=== PATIENT | male | born 1975 | race Caucasian/White ===

== ENCOUNTER 2017-08-06 04:31 | Emergency (ER) | payer BC ==
[2017-08-06] MEDS ORDERED: Clindamycin CAP* 150 MG PO ONE (05:46)
[2017-08-06] MEDS ORDERED: oxyCODONE/Acetamin 5/325 MG* TAB PO ONE (05:46)
--- NOTE | 2017-08-06 06:38 | ED ---
Jovanni Levine Nikita, scribed for Juan F Sol on 08/06/17 at 0550 . Throat Pain/Nasal Congestion - HPI Summary HPI Summary: This patient is a 41 year old M BIBA to ED with a chief complaint of L upper dental pain since 4 days ago. The CC is described as intermittent and aching. The patient rates the pain 10/10 in severity. Symptoms aggravated by nothing. Symptoms alleviated by nothing. Patient reports L facial swelling. Patient denies fever. Pt has put on ice as treatment. Pt is a resident at [facility]. - History of Current Complaint Chief Complaint: EDDentalPain Time Seen by Provider: 08/06/17 05:26 Hx Obtained From: Patient Onset/Duration: Sudden Onset, Lasting Days, Still Present Severity: Severe Associated Signs And Symptoms: Negative: Negative - Patient reports L facial swelling. Patient denies fever. - Allergies/Home Medications Allergies/Adverse Reactions: Allergies Allergy/AdvReac Type Severity Reaction Status Date / Time Codeine Allergy Hives Verified 08/06/17 04:45 PMH/Surg Hx/FS Hx/Imm Hx Endocrine/Hematology History: Denies: Hx Diabetes Cardiovascular History: Denies: Hx Coronary Artery Disease, Hx Hypertension - Immunization History Date of Influenza Vaccine: 01/2017 Infectious Disease History: No Infectious Disease History: Denies: Traveled Outside the [place] in Last 30 Days - Family History Known Family History: Negative: Cardiac Disease, Hypertension, Diabetes - Social History Alcohol Use: None Substance Use Type: Reports: None Smoking Status (MU): Current Every Day Smoker Review of Systems Negative: Fever Positive: Dental Pain - L upper Positive: Other - L facial swelling All Other Systems Reviewed And Are Negative: Yes Physical Exam Triage Information Reviewed: Yes Vital Signs On Initial Exam: Initial Vitals Temp Pulse Resp BP Pulse Ox 98.2 F 77 18 107/86 98 08/06/17 04:40 08/06/17 04:40 08/06/17 04:40 08/06/17 04:40 08/06/17 04:40 Vital Signs Reviewed: Yes Appearance: Positive: Well-Appearing, No Pain Distress Skin: Positive: Warm, Skin Color Reflects Adequate Perfusion, Dry Head/Face: Positive: Normal Head/Face Inspection Eyes: Positive: EOMI, SARAH ENT: Positive: Normal ENT inspection Dental: Positive: Other - tenderness over 7/8 tooth area Respiratory/Lung Sounds: Positive: Clear to Auscultation, Breath Sounds Present Cardiovascular: Positive: RRR, Pulses are Symmetrical in both Upper and Lower Extremities Abdomen Description: Positive: Nontender, Soft Bowel Sounds: Positive: Present Musculoskeletal: Positive: Normal, Strength/ROM Intact Neurological: Positive: Normal, Sensory/Motor Intact, Alert, Oriented to Person Place, Time Diagnostics - Vital Signs Vital Signs Temp Pulse Resp BP Pulse Ox 08/06/17 04:40 98.2 F 77 18 107/86 98 - Laboratory Lab Statement: Any lab studies that have been ordered have been reviewed, and results considered in the medical decision making process. EENT Course/Dx - Course Assessment/Plan: This patient is a 41 year old M BIBA to ED with a chief complaint of L upper dental pain since 4 days ago. Patient reports L facial swelling. Patient denies fever. In the ED course, pt was given cleocet and percocet. Pt will be discharged. - Differential Diagnoses Differential Diagnoses: Other - dental pain, dental abscess - Diagnoses Provider Diagnoses: Pain, dental, Dental abscess Discharge - Discharge Plan Condition: Stable Disposition: HOME Patient Education Materials: Dental Abscess (ED) Referrals: [facility] [Provider Group] - 3 Days The documentation as recorded by the Jovanni lala Nikita accurately reflects the service I personally performed and the decisions made by Sweta orozco Emmanuel.
[2017-08-06 06:40] VITALS: BP 150/105
== END 2017-08-06 06:39 | disposition home or self-care (01) ==
LOC: ED 04:31
DX: K08.89 Other specified disorders of teeth and supporting structures (principal); K04.7 Periapical abscess without sinus; F17.200 Nicotine dependence, unspecified, uncomplicated
CPT/HCPCS: 99282; A9270-GY